=== PATIENT | male | born 1955 | race Two or more races ===

== ENCOUNTER 2020-07-02 22:23 | Emergency (ER) | payer OTHER ==
[~2020-07-02] VITALS: Ht 167.6 cm; Wt 81.6 kg
[2020-07-03] MEDS ORDERED: ZOFRAN4 MG PO (04:14)
[2020-07-03] MEDS ORDERED: PEPCID40 MG PO (04:14)
== END 2020-07-03 04:23 ==
LOC: ER 22:23
DX: R10.13 Epigastric pain (principal); R21 Rash and other nonspecific skin eruption